=== PATIENT | male | born 1960 | race Caucasian/White ===

== ENCOUNTER 2023-07-31 16:50 | Observation (INO) | payer OTHER, SELFPAY ==
[2023-07-31] VITALS (20 sets, daily range): BP systolic 133–175; BP diastolic 74–94; PULSE 67–90; RESP 18–20; TEMP 36.3–36.4; O2SAT 91–96; BMI 39.3; BMI 39.8
--- NOTE | 2023-07-31 17:08 | CRLHL7_ITS ---
For Patients: As a result of the Century Cures Act, medical imaging exams and procedure reports are released immediately into your electronic medical record. You may view this report before your referring provider. If you have questions, please contact your health care provider. INDICATION: Left-sided numbness. TECHNIQUE: CT head without contrast. COMPARISON: None. FINDINGS: CSF spaces: Within normal limits for age. Brain parenchyma and extra-axial spaces: The treadwell-white differentiation is normal. No sign of mass, hemorrhage, or midline shift. No extra-axial fluid collection. Skull base and calvarium: Mild right maxillary sinus mucoperiosteal thickening. Otherwise, the visualized paranasal sinuses and mastoid air cells demonstrate no acute or significant findings. The visualized orbits are grossly unremarkable. No skull fractures. IMPRESSION: No acute intracranial abnormality on this noncontrast study. Please note that all CT scans at this facility use dose modulation, iterative reconstruction, and/or weight-based dosing when appropriate to reduce radiation dose to as low as reasonably achievable. Dictated by Suresh Lopez MD @ 07/31/2023 5:39:25 PM (Electronically Signed)
--- NOTE | 2023-07-31 17:47 | CRLHL7_ITS ---
For Patients: As a result of the Century Cures Act, medical imaging exams and procedure reports are released immediately into your electronic medical record. You may view this report before your referring provider. If you have questions, please contact your health care provider. INDICATION: Transient ischemic attack, left arm numbness, left facial numbness. TECHNIQUE: CTA neck with contrast bolus tracking, 3D angiographic rendering using maximum intensity projection (MIP) and images permanently archived. FINDINGS: There is minor carotid atherosclerosis. There is no significant carotid artery stenosis or dissection. There is no significant vertebral artery stenosis or dissection. The soft tissues of the neck are within normal limits. The cervical spine is in normal alignment. Degenerative changes are noted in the cervical spine. IMPRESSION: No significant carotid or vertebral artery stenosis or dissection. Please note that all CT scans at this facility use dose modulation, iterative reconstruction, and/or weight-based dosing when appropriate to reduce radiation dose to as low as reasonably achievable. Dictated by Gino Michaels MD @ 08/01/2023 9:57:02 AM (Electronically Signed)
--- NOTE | 2023-07-31 17:48 | CRLHL7_ITS ---
For Patients: As a result of the Century Cures Act, medical imaging exams and procedure reports are released immediately into your electronic medical record. You may view this report before your referring provider. If you have questions, please contact your health care provider. INDICATION: Transient ischemic attack, left arm numbness, left facial numbness. TECHNIQUE: CTA head with contrast bolus tracking, 3D angiographic rendering using maximum intensity projection (MIP) and images permanently archived. FINDINGS: The left GRADES 6 TH[address]OUGH 8 TEACHER has an early bifurcation with possibly some collateral formation. There is otherwise normal opacification of the intracranial vasculature. There is no large vessel occlusion. No aneurysm is identified. IMPRESSION: No large vessel occlusion. Please note that all CT scans at this facility use dose modulation, iterative reconstruction, and/or weight-based dosing when appropriate to reduce radiation dose to as low as reasonably achievable. Dictated by Gino Michaels MD @ 08/01/2023 9:55:39 AM (Electronically Signed)
--- NOTE | 2023-07-31 17:51 | ED_ITS ---
HPI - Neuro Symptoms/Deficit General Date Seen: 08/15/23 Chief Complaint: Neuro Symptoms/Altered Deficit Stated Complaint: stroke like symptoms Time Seen by Provider: 07/31/23 17:03 Source: patient Mode of arrival: ambulatory Limitations: no limitations History of Present Illness HPI Narrative: Patient is a 62-year-old male with no pertinent medical problems presenting to the emergency department for 4-5 episodes of left-sided facial numbness and left arm numbness. He states over the past 4 days this has happened about 4 or 5 times the latest being at about 14:30 today. States each episode lasts only about 5 minutes and then resolves. Denies ever having symptoms like this before. No history of strokes in the family. He has no history of diabetes, hypertension, smoking, high cholesterol. No heart disease. States when the symptoms occur he has no associated numbness. States he is asymptomatic at this time. Denies fevers, chills, confusion, chest pain, shortness of breath, abdominal pain, lightheadedness, dizziness. No other concerns noted at this time Related Data Home Medications Medication Instructions Recorded Confirmed No Known Home Medications 07/31/23 07/31/23 Allergies Allergy/AdvReac Type Severity Reaction Status Date / Time No Known Drug Allergies Allergy Verified 07/31/23 17:00 Review of Systems Status of ROS: Reports: 10 or more systems reviewed and unremarkable except as noted in History and below [facility] Social History Smoking Status: Never smoker How often do you have a drink containing alcohol: 2-3 times a week How many standard drinks containing alcohol do you have on a typical day: 1 or 2 How often do you have six or more drinks on one occasion: Never AUDIT-C Alcohol total score: 3 Non-prescribed substance use: denies use Exam Narrative: Exam Narrative: Const: Well-nourished, Well-developed, in mild distress Eyes: PERRL, no conjunctival injection, and symmetrical lids HENT: Atraumatic external nose and ears. Moist mucous membranes. Neck: Symmetric, trachea midline, No thyromegaly. CVS: RRR, No murmurs or gallops. Peripheral pulses 2+ and equal in all extremities RESP: Unlabored respiratory effort. Clear to auscultation bilaterally. GI: Nontender/Nondistended, No rebound or guarding. MSK:Extremities w/o deformity, Normal Active ROM Skin: Warm, Dry. No rashes or lesions. Neuro: Normal Muscle tone, Cranial nerves 2-12 grossly intact, normal [id number], normal [id number], normal gait, normal strength 5/5 upper lower extremities bilaterally, normal sensation upper and lower extremities bilaterally, normal rapid alternating movements. Psych: Awake, Alert, & Oriented x3. Appropriate mood and affect. Const: Vital Signs, click to edit/add: Vital Signs - 24 hr 07/31/23 16:56 07/31/23 18:03 07/31/23 18:04 Temperature 97.3 F L Pulse Rate 78 83 Pulse Rate [Right Pulse Oximeter] 85 Respiratory Rate 18 Blood Pressure 134/86 Blood Pressure [Ri ght Upper Arm] 175/74 H Pulse Oximetry 96 93 92 Oxygen Delivery Me thod Room Air 07/31/23 18:15 07/31/23 18:30 07/31/23 18:45 Temperature Pulse Rate 90 79 87 Pulse Rate [Right Pulse Oximeter] Respiratory Rate Blood Pressure Blood Pressure [Ri ght Upper Arm] Pulse Oximetry 93 94 96 Oxygen Delivery Me thod 07/31/23 19:00 07/31/23 19:15 07/31/23 19:17 Temperature Pulse Rate 80 73 74 Pulse Rate [Right Pulse Oximeter] Respiratory Rate Blood Pressure 146/86 H Blood Pressure [Ri ght Upper Arm] Pulse Oximetry 94 91 93 Oxygen Delivery Me thod 07/31/23 19:30 07/31/23 19:45 07/31/23 19:53 Temperature Pulse Rate 80 85 78 Pulse Rate [Right Pulse Oximeter] Respiratory Rate Blood Pressure 138/88 Blood Pressure [Ri ght Upper Arm] Pulse Oximetry 93 92 93 Oxygen Delivery Me thod 07/31/23 20:00 07/31/23 20:01 07/31/23 20:15 Temperature Pulse Rate 78 78 81 Pulse Rate [Right Pulse Oximeter] Respiratory Rate Blood Pressure 138/90 H Blood Pressure [Ri ght Upper Arm] Pulse Oximetry 93 93 94 Oxygen Delivery Me thod 07/31/23 20:30 07/31/23 20:45 Temperature Pulse Rate 82 82 Pulse Rate [Right Pulse Oximeter] Respiratory Rate Blood Pressure Blood Pressure [Ri ght Upper Arm] Pulse Oximetry 93 94 Oxygen Delivery Me thod Course Vital Signs Vital signs: Initial Vital Signs Temperature 97.3 F L 07/31/23 16:56 Temperature Source Temporal Artery Scan 07/31/23 16:56 Pulse Rate 85 07/31/23 16:56 Respiratory Rate 18 07/31/23 16:56 Blood Pressure 175/74 H 07/31/23 16:56 Blood Pressure Mean 107 H 07/31/23 16:56 Blood Pressure Position Sitting 07/31/23 16:56 Pulse Oximetry 96 07/31/23 16:56 Oxygen Delivery Method Room Air 07/31/23 16:56 Vital Signs Temperature 97.3 F L 07/31/23 16:56 Pulse Rate 85 07/31/23 16:56 Respiratory Rate 18 07/31/23 16:56 Blood Pressure 175/74 H 07/31/23 16:56 Pulse Oximetry 96 07/31/23 16:56 Oxygen Delivery Method Room Air 07/31/23 16:56 Temperature 97.3 F L 07/31/23 16:56 Pulse Rate 82 07/31/23 20:45 Respiratory Rate 18 07/31/23 16:56 Blood Pressure 138/90 H 07/31/23 20:01 Pulse Oximetry 94 07/31/23 20:45 Oxygen Delivery Method Room Air 07/31/23 16:56 Medications Administered Medications: Discontinued Medications Generic Name Dose Route Start Last Admin Trade Name Jaredq PRN Reason Stop Dose Admin Aspirin 324 mg 07/31/23 19:51 07/31/23 20:01 Aspirin 81 Mg Tab.Chew PO 07/31/23 19:52 324 mg ONCE ONE Administration MDM - Neuro Symptoms/Deficit MDM Narrative Medical decision making narrative: Patient is a 62-year-old male presenting to emergency department for left face and arm numbness. This has happened multiple times in the past few days and only last for about 5 minutes at this time my concern is TIAs versus other neurological issues. Does not seem like a seizure. No signs of meningitis. Seems odd to be a radiculopathy considering it happened in his face and his arm at the same time. Will treated as a TIA at this time. COVID/flu/RSV, EKG, troponin, CBC, CMP all ordered. Aspirin given. Imaging and lab work all returned showing no acute abnormalities. CTA was then ordered which also showed no acute abnormalities. EKG is normal. Will Dr. Coles of spoke to who recommends admission for MRI in the morning and neurology consult. After this he had another episode with the same symptoms and numbness was just on the inside of the arm. It resolved again after a few minutes. Dr. Parada accepted for admission. Lab Data Labs: Lab Results 07/31/23 Range/Units 17:34 WBC 7.71 (4.50-11.00) K/uL RBC 5.08 (4.30-5.90) m/uL Hgb 15.7 (13.5-17.5) gm/dL Hct 46.3 (37.0-53.0) % MCV 91 (80-100) fL MCH 31 (26-34) pg MCHC 34 (32-36) gm/dL RDW Coeff of Lashon 12.9 (11.5-15.5) % Plt Count 211 (140-440) K/uL Neut % (Auto) 46.3 (42.0-72.0) % Lymph % (Auto) 33.5 (20-44) % [place] % (Auto) 15.7 H (0.0-11.0) % Eos % (Auto) 3.6 (0.0-7.0) % Baso % (Auto) 0.8 (0.0-3.0) % Neut # (Auto) 3.57 (1.7-7.0) K/uL Lymph # (Auto) 2.58 (0.90-2.90) K/uL [place] # (Auto) 1.20 H (0.00-0.90) K/UL Eos # (Auto) 0.28 (0.00-0.50) K/uL Baso # (Auto) 0.06 (0.00-0.30) K/uL Abs Immat Gran (auto) 0.01 (0.00-0.30) K/uL Imm/Tot Granulo (auto) 0.1 % Sodium 138 (135-149) mmol/L Potassium 4.2 (3.6-5.1) mmol/L Chloride 104 (96-114) mmol/L Carbon Dioxide 23 (20-32) mmol/L Anion Gap 11 (7-15) mEq/L BUN 18 (7-30) mg/dL Creatinine 0.9 (0.5-1.5) mg/dL Estimated Creat Clear 84.07 Estimated GFR 97 ml/min Glucose 146 H (60-115) mg/dL Calcium 9.2 (8.4-10.6) mg/dL Total Bilirubin 0.4 (0.1-1.5) mg/dL AST 34 (12-35) U/L ALT 48 (4-50) U/L Alkaline Phosphatase 38 L (40-150) U/L Troponin I < 0.01 L (0.01-0.04) ng/mL Total Protein 8.0 (6.0-8.3) g/dL Albumin 4.5 (3.3-5.0) g/dL SARS-CoV-2 (PCR) Negative SARS-CoV-2 (Negative) Influenza Type A (PCR) Negative PCR FLU A (Negative) Influenza Type B (PCR) Negative PCR FLU B (Negative) RSV (PCR) Negative PCR RSV (Negative) Imaging Data CTA head and neck: Radiologist's impression: Preliminary Report: CTA Head/neck: 1. No evidence of intracranial proximal arterial occlusion or critical stenosis. 2. No evidence of hemodynamically significant stenosis or acute dissection in the neck. Dictated by Ana Grijalva MD @ 07/31/2023 7:01:[address] scan head: Radiologist's impression: No acute intracranial abnormality on this noncontrast study. Please note that all CT scans at this facility use dose modulation, iterative reconstruction, and/or weight-based dosing when appropriate to reduce radiation dose to as low as reasonably achievable. Dictated by Suresh Lopez MD @ 07/31/2023 5:39:25 PM ECG Data Attestation: I personally reviewed and interpreted this ECG as follows: Prior ECG tracings: not available for review Interpretation: Normal sinus rhythm with a rate of 79 beats per minute, normal intervals, normal axis, no ST or T-wave abnormalities Discharge Plan Discharge Clinical Impression: Arm numbness Patient Disposition: Admitted As Observation Discharge Location: [facility] Condition: Stable
[2023-07-31 17:54] LABS: Basophils Absolute Auto 0.06 K/uL (0.00-0.30); Basophils Percent Auto 0.8 % (0.0-3.0); Eosinophils Absolute Auto 0.28 K/uL (0.00-0.50); Eosinophils Percent Auto 3.6 % (0.0-7.0); Hematocrit 46.3 % (37.0-53.0); Hemoglobin* 15.7 gm/dL (13.5-17.5); Immature Granulocytes Abs Auto 0.01 K/uL (0.00-0.30); Immature Granulocytes Pct Auto 0.1 %; Lymphocytes Absolute Auto 2.58 K/uL (0.90-2.90); Lymphocytes Percent Auto 33.5 % (20-44); Mean Corpuscular HGB Conc 34 gm/dL (32-36); Mean Corpuscular Hemoglobin 31 pg (26-34); Mean Corpuscular Volume 91 fL (80-100); Monocytes Percent Auto 15.7 % (0.0-11.0); Neutrophils Absolute Auto 3.57 K/uL (1.7-7.0); Neutrophils Percent Auto 46.3 % (42.0-72.0); Platelet Count* 211 K/uL (140-440); RDW Coefficient of Variation % 12.9 % (11.5-15.5); Red Blood Count 5.08 m/uL (4.30-5.90); White Blood Count* 7.71 K/uL (4.50-11.00)
[2023-07-31 17:58] LABS: Slide Review Reflex No
[2023-07-31 18:09] LABS: Albumin* 4.5 g/dL (3.3-5.0); Chloride* 104 mmol/L (96-114); Potassium* 4.2 mmol/L (3.6-5.1); Sodium* 138 mmol/L (135-149)
[2023-07-31 18:11] LABS: Anion Gap 11 mEq/L (7-15); Bilirubin Total* 0.4 mg/dL (0.1-1.5); Carbon Dioxide* 23 mmol/L (20-32); Creatinine* 0.9 mg/dL (0.5-1.5); Est. Creatinine Clearance* 84.07; Estimated Glomerular Filt Rate 97 ml/min
[2023-07-31 18:12] LABS: Alanine Aminotransferase* 48 U/L (4-50); Alkaline Phosphatase* 38 U/L (40-150); Aspartate Amino Transferase* 34 U/L (12-35); Blood Urea Nitrogen* 18 mg/dL (7-30); Glucose* 146 mg/dL (60-115)
[2023-07-31 18:13] LABS: Calcium* 9.2 mg/dL (8.4-10.6)
[2023-07-31 18:27] LABS: Troponin I* < 0.01 ng/mL (0.01-0.04)
[2023-07-31 19:41] LABS: PCR FLU A Negative PCR FLU A (Negative); SARS PCR* Negative SARS-CoV-2 (Negative)
[2023-07-31 19:42] LABS: PCR FLU B Negative PCR FLU B (Negative); PCR RSV Negative PCR RSV (Negative)
--- NOTE | 2023-07-31 19:50 | ED.NURSE ---
Pt reports experiencing episode of L-sided facial numbness and some localized Left forearm heaviness. MD Cerna notified. Neuros assessed and appear to be intact otherwise. Vitals checked, VSS.
--- NOTE | 2023-07-31 20:00 | ED.NURSE ---
Pt reassessed, states symptoms resolved after several minutes. Asymptomatic at this time. MD updated.
[2023-07-31] MEDS: ASPIRIN 81 MG TAB.CHEW 324 MG PO (20:01)
--- NOTE | 2023-07-31 20:49 | ED.NURSE ---
Report called to M/S RN.
--- NOTE | 2023-07-31 22:38 | P.IMHP_ITS ---
Hospitalist- H&P: HPI History of Present Illness Time Seen by Provider: 22:38 Date Seen: 07/31/23 Chief complaint: stroke like symptoms Narrative: Arslan Tesfaye is a 62 year old male with obesity and h/o hyperlipidemia for which he is not taking any medication who presented through the ER for left lower face and arm numbness. He has been working on a puzzle lately and thought at first this was just from leaning on his arm. It has been happening intermittently since Sunday. It lasts about 5 minutes and then resolves. He had an episode while driving yesterday. He had an episode in the ER today, but is not having symptoms at this time. Never had anything like this before. Denies pain, CP or SOB. 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 ?S74.21XA - Injury of cutaneous sensory nerve at hip and high level, right leg, initial encounter (ICD-10) Cervical stenosis of spinal canal ?M48.02 - Spinal stenosis, cervical region (ICD-10) DAISY on CPAP ?G47.33 - Obstructive sleep apnea (adult) (pediatric) (ICD-10) Alcohol abuse, episodic ?F10.10 - Alcohol abuse, uncomplicated (ICD-10) Obesity (BMI 30.0-34.9) ?E66.9 - Obesity, unspecified (ICD-10) Hyperlipidemia ?E78.5 - Hyperlipidemia, unspecified (ICD-10) Surgical History (Updated 07/31/23 @ 23:21 by Elaine Parada MD) H/O sinus surgery ?Z98.890 - Other specified postprocedural states (ICD-10) H/O hernia repair ?Z98.890 - Other specified postprocedural states (ICD-10) ?Z87.19 - Personal history of other diseases of the digestive system (ICD-10) Hx of colonoscopy ?Z98.890 - Other specified postprocedural states (ICD-10) H/O basal cell carcinoma excision ?Z98.890 - Other specified postprocedural states (ICD-10) ?Z85.828 - Personal history of other malignant neoplasm of skin (ICD-10) Family History (Updated 07/31/23 @ 21:59 by Elaine Parada MD) Maternal Grandfather Diabetes Maternal Grandmother Diabetes Mother Diabetes Father COPD (chronic obstructive pulmonary disease) Social History (Updated 07/31/23 @ 23:23 by Elaine Parada MD) Narrative: 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 Drinks ~10 drinks in a day on two days of the week. Denies any problems with alcohol. Denies recreational drug use. What is your current living situation?: I presently have a place to live Problems where you live: no known problems Problems where you live details: n/a In the past 12 months, utilities in danger of being shut off: no In past 12 months, lack of transportation kept you from medical appts, meetings, work, or getting things needed for daily living: no In the past 12 mos, have been you worried that your food would run out before you had money to buy more?: never true In the past 12 mos, the food you bought just didn't last and you didn't have money to buy more?: never true Smoking Status: Never smoker How often do you have a drink containing alcohol: 2-3 times a week How many standard drinks containing alcohol do you have on a typical day: 1 or 2 How often do you have six or more drinks on one occasion: Never AUDIT-C Alcohol total score: 3 Non-prescribed substance use: denies use Caffeine: Yes (soda) How often does anyone, including family, friends and others, physically hurt you : never How often does anyone, including family, friends and others, insult or talk down to you: never How often does anyone, including family, friends and others, threaten you with harm: never How often does anyone, including family, friends and others, scream or curse at you: never service: No Meds Home Medications and Allergies Home Medications Medication Instructions Recorded Confirmed Type No Known Home Medications 07/31/23 07/31/23 History Allergies Allergy/AdvReac Type Severity Reaction Status Date / Time No Known Drug Allergies Allergy Verified 07/31/23 17:00 Exam Narrative: Exam Narrative: General: No acute distress. Awake alert oriented x3. Obese. HEENT: Normocephalic atraumatic, pupils equally round and reactive to light and accommodation. Oropharynx clear. Mucous membranes are moist. No cervical lymphadenopathy, thyromegaly or carotid bruits. No JVD. Cardiovascular: Regular rate and rhythm. No murmurs, gallops, or rubs. Chest: No increased work of breathing. Clear to auscultation bilaterally. No crackles or wheezes. Abdomen: Bowel sounds present. Soft, protuberant, nondistended, nontender. Small umbilical hernia, reproducible and nontender. No hepatosplenomegaly or masses. Genitourinary: Patient asked me about bulging on upper thighs bilaterally that has been there for years. These appear to be fat pads/pannus. No inguinal hernias palpated bilaterally. Extremities: No edema, no cyanosis or clubbing. Skin: No jaundice, no pallor, no rashes. Neuro: There are no focal deficits. Romberg is negative. Cranial nerves 2-12 are intact. Extraocular movements are full. No nystagmus. No facial asymmetry. Tongue is midline. Peripheral vision and vision are grossly intact. Strength is 5/5 in all 4 extremities. DTRs intact and symmetric. Light touch sensation is intact in face body and extremities. Coordination is intact in upper and lower extremities. Const: Vital Signs, click to edit/add: Vital Signs - 24 hr 07/31/23 16:56 07/31/23 18:03 07/31/23 18:04 Temperature 97.3 F L Pulse Rate 78 83 Pulse Rate [Pulse Oximeter] Pulse Rate [Right Pulse Oximeter] 85 Respiratory Rate 18 Blood Pressure 134/86 Blood Pressure [Ri ght Arm] Blood Pressure [Ri ght Upper Arm] 175/74 H Pulse Oximetry 96 93 92 Oxygen Delivery Me thod Room Air 07/31/23 18:15 07/31/23 18:30 07/31/23 18:45 Temperature Pulse Rate 90 79 87 Pulse Rate [Pulse Oximeter] Pulse Rate [Right Pulse Oximeter] Respiratory Rate Blood Pressure Blood Pressure [Ri ght Arm] Blood Pressure [Ri ght Upper Arm] Pulse Oximetry 93 94 96 Oxygen Delivery Me thod 07/31/23 19:00 07/31/23 19:15 07/31/23 19:17 Temperature Pulse Rate 80 73 74 Pulse Rate [Pulse Oximeter] Pulse Rate [Right Pulse Oximeter] Respiratory Rate Blood Pressure 146/86 H Blood Pressure [Ri ght Arm] Blood Pressure [Ri ght Upper Arm] Pulse Oximetry 94 91 93 Oxygen Delivery Me od 07/31/23 19:30 07/31/23 19:45 07/31/23 19:53 Temperature Pulse Rate 80 85 78 Pulse Rate [Pulse Oximeter] Pulse Rate [Right Pulse Oximeter] Respiratory Rate Blood Pressure 138/88 Blood Pressure [Ri ght Arm] Blood Pressure [Ri ght Upper Arm] Pulse Oximetry 93 92 [facility]00 07/31/23 20:01 07/31/23 20:15 Temperature Pulse Rate 78 78 81 Pulse Rate [Pulse Oximeter] Pulse Rate [Right Pulse Oximeter] Respiratory Rate Blood Pressure 138/90 H Blood Pressure [Ri ght Arm] Blood Pressure [Ri ght Upper Arm] Pulse Oximetry 93 93 94 [facility] 07/[facility]/23 20:30 07/31/23 20:45 07/31/23 21:10 Temperature 97.6 F Pulse Rate 82 82 Pulse Rate [Pulse Oximeter] 67 Pulse Rate [Right Pulse Oximeter] Respiratory Rate 20 Blood Pressure Blood Pressure [Ri ght Arm] 142/94 H Blood Pressure [Ri ght Upper Arm] Pulse Oximetry 93 94 95 [facility] Hospitalist - H&P: Result Labs Labs: Short CBC 07/31/23 Range/Units 17:34 WBC 7.71 (4.50-11.00) K/uL Hgb 15.7 (13.5-17.5) gm/dL Hct 46.3 (37.0-53.0) % Plt Count 211 (140-440) K/uL BMP 07/31/23 17:34 Sodium 138 Potassium 4.2 Chloride 104 Carbon Dioxide 23 BUN 18 Creatinine 0.9 Glucose 146 H Calcium 9.2 Cardiac Enzymes 07/31/23 Range/Units 17:34 Troponin I < 0.01 L (0.01-0.04) ng/mL Liver Function 07/31/23 Range/Units 17:34 Total Bilirubin 0.4 (0.1-1.5) mg/dL AST 34 (12-35) U/L ALT 48 (4-50) U/L Alkaline Phosphatase 38 L (40-150) U/L Albumin 4.5 (3.3-5.0) g/dL EKG normal sinus rhythm, 73 beats per minute, nonspecific T-wave abnormality. Ordering Physician: Rahat Cerna D.O. Date of Service: 07/31/23 Procedure(s): CT head/brain wo con Accession Number(s): [id number] cc: Rahat Cerna D.O.; Provider,Not a Local~ For Patients: As a result of the Cures Act, medical imaging exams and procedure reports are released immediately into your electronic medical record. You may view this report before your referring provider. If you have questions, please contact your health care provider. INDICATION: Left-sided numbness. TECHNIQUE: CT head without contrast. COMPARISON: None. FINDINGS: CSF spaces: Within normal limits for age. Brain parenchyma and extra-axial spaces: The treadwell-white differentiation is normal. No sign of mass, hemorrhage, or midline shift. No extra-axial fluid collection. Skull base and calvarium: Mild right maxillary sinus mucoperiosteal thickening. Otherwise, the visualized paranasal sinuses and mastoid air cells demonstrate no acute or significant findings. The visualized orbits are grossly unremarkable. No skull fractures. IMPRESSION: No acute intracranial abnormality on this noncontrast study. Please note that all CT scans at this facility use dose modulation, iterative reconstruction, and/or weight-based dosing when appropriate to reduce radiation dose to as low as reasonably achievable. Dictated by Suresh Lopez MD @ 07/31/2023 5:39:25 PM (Electronically Signed) Assessment and Plan Assessment and plan (1) Arm numbness: Problem comment: - DDx includes TIA, impingement, angina (left arm and jaw symptoms). - CT and CTA head no acute abnormalities. - Admit for observation on telemetry. MRI and ECHO in the morning. Consider cardiac stress testing as an outpatient since this may be anginal equivalent. Status: Acute (2) Hyperlipidemia: Problem comment: He is not taking medication for this, but it is not clear that it is diet controlled because he has not seen a physician for an annual physical in over 2 years. Status: Chronic
[2023-08-01] VITALS (7 sets, daily range): BP systolic 121–137; BP diastolic 83–95; PULSE 60–90; RESP 14–20; TEMP 36.2–37.2; O2SAT 93–96
--- NOTE | 2023-08-01 06:22 | PC.NURSE ---
Patient arrived from ED at 2100. Patient pleasant, alert and oriented. Independent in room for ambulation.?Denies pain, weakness, dizziness or lightheadedness. Patient called television writer into room at 0558 and reported he was having an episode of numbness/tingling on the left side of face and left arm. Episode lasted approximately 5 min. He denied any other symptoms. Speech was normal. Hand grasps strong and equal; leg strength strong and equal. He reports symptoms were the same as previous episodes. ?
[2023-08-01 06:43] LABS: Chloride* 101 mmol/L (96-114); Sodium* 140 mmol/L (135-149)
[2023-08-01 06:44] LABS: Potassium* 4.6 mmol/L (3.6-5.1)
[2023-08-01 06:46] LABS: Est. Creatinine Clearance* 84.07; Estimated Glomerular Filt Rate 85 ml/min
[2023-08-01 06:47] LABS: Anion Gap 8 mEq/L (7-15); Blood Urea Nitrogen* 18 mg/dL (7-30); Calcium* 9.5 mg/dL (8.4-10.6); Carbon Dioxide* 31 mmol/L (20-32); Glucose* 149 mg/dL (60-115)
[2023-08-01 07:03] LABS: Troponin I* < 0.01 ng/mL (0.01-0.04)
[2023-08-01] MEDS: SODIUM CHLORIDE 0.9 % (FLUSH) 10 ML SYRINGE 5 ML IVF ×2 (09:11→21:15)
[2023-08-01] MEDS: CLOPIDOGREL 75 MG TABLET PO (10:03)
--- NOTE | 2023-08-01 15:27 | PM.IMPN1 ---
Progress Note: A&P Assessment and plan (1) TIA (transient ischemic attack): Problem details: Left face and arm numbness likely due to TIA. Treat with aspirin, Plavix, statin. Await MRI and echo results. Status: Acute (2) DAISY on CPAP: Problem details: Continue home use Status: Chronic (3) Obesity: Problem details: BMI of 39 Status: Acute (4) Elevated blood sugar: Problem details: Check hemoglobin A1c Status: Acute (5) Hyperlipidemia: Problem details: With TIA will start a statin Status: Chronic Plan Continue in hospital for evaluation of fluctuant neurologic symptoms pending test results and clinical course possible discharge to home tomorrow Time Spent With Patient Total time spent: Total time spent today is 55 minutes, 40 minutes in coordination of care discussing with patient other providers ongoing management of TIA and chronic cardiovascular risk factors Subjective Date Seen: 08/01/23 Interval history: 62-year-old male admitted through the emergency department reporting about 5 days of intermittent left cheek and left arm numbness and tingling. This has been occurring intermittently over the past 5 days. There is no obvious trigger for this. Typically occurs when he is at rest. Does not appear to be caused by holding his neck or arm in particular position. He does not have any weakness associated with it there is no visual disturbance. He is not having any pain in his face or arm. He does not have any neck pain or change in symptoms associated with neck movement. He is not having any shortness of breath or chest pain. Symptoms are not exertional. It seems to last a couple minutes and then goes away without any intervention. He reports otherwise feeling well. Exam Const: Vital Signs, click to edit/add: Vital Signs - 24 hr 07/31/23 16:56 07/31/23 18:03 07/31/23 18:04 Temperature 97.3 F L Pulse Rate 78 83 Pulse Rate [Pulse Oximeter] Pulse Rate [Right Pulse Oximeter] 85 Respiratory Rate 18 Blood Pressure 134/86 Blood Pressure [Ri ght Arm] Blood Pressure [Ri ght Upper Arm] 175/74 H Pulse Oximetry 96 93 92 Oxygen Delivery Me thod Room Air 07/31/23 18:15 07/31/23 18:30 07/31/23 18:45 Temperature Pulse Rate 90 79 87 Pulse Rate [Pulse Oximeter] Pulse Rate [Right Pulse Oximeter] Respiratory Rate Blood Pressure Blood Pressure [Ri ght Arm] Blood Pressure [Ri ght Upper Arm] Pulse Oximetry 93 94 [facility] 07[facility] 19:00 07/31/23 19:15 07/31/23 19:17 Temperature Pulse Rate 80 73 74 Pulse Rate [Pulse Oximeter] Pulse Rate [Right Pulse Oximeter] Respiratory Rate Blood Pressure 146/86 H Blood Pressure [Ri ght Arm] Blood Pressure [Ri ght Upper Arm] Pulse Oximetry 94 91 93 [facility] 07/31/23 19:30 07/31/23 19:45 07/31/23 19:53 Temperature Pulse Rate 80 85 78 Pulse Rate [Pulse Oximeter] Pulse Rate [Right Pulse Oximeter] Respiratory Rate Blood Pressure 138/88 Blood Pressure [Ri ght Arm] Blood Pressure [Ri ght Upper Arm] Pulse Oximetry 93 92 93 [facility] 07/31/23 20:00 07/31/23 20:01 07/31/23 20:15 Temperature Pulse Rate 78 78 81 Pulse Rate [Pulse Oximeter] Pulse Rate [Right Pulse Oximeter] Respiratory Rate Blood Pressure 138/90 H Blood Pressure [Ri ght Arm] Blood Pressure [Ri ght Upper Arm] Pulse Oximetry 93 93 94 [facility] 07/31/23 20:30 07/31/23 20:45 07/31/23 21:10 Temperature 97.6 F Pulse Rate 82 82 Pulse Rate [Pulse Oximeter] 67 Pulse Rate [Right Pulse Oximeter] Respiratory Rate 20 Blood Pressure Blood Pressure [Ri ght Arm] 142/94 H Blood Pressure [Ri ght Upper Arm] Pulse Oximetry 93 94 95 [facility] 07/31/23 21:10 07/31/23 22:32 07/31/23 23:00 Temperature 97.6 F Pulse Rate 67 Pulse Rate [Pulse Oximeter] 71 Pulse Rate [Right Pulse Oximeter] Respiratory Rate 20 18 Blood Pressure Blood Pressure [Ri ght Arm] 133/90 H Blood Pressure [Ri ght Upper Arm] Pulse Oximetry 95 93 Oxygen Delivery [facility] Room Air Room Air 07/31/23 23:00 08/01/23 03:00 08/01/23 08:09 Temperature 97.1 F L 98.9 F Pulse Rate Pulse Rate [Pulse Oximeter] 70 72 Pulse Rate [Right Pulse Oximeter] Respiratory Rate 16 20 Blood Pressure Blood Pressure [Ri ght Arm] 134/88 133/91 H Blood Pressure [Ri ght Upper Arm] Pulse Oximetry 93 94 95 Oxygen Delivery Sc thod Room Air Room Air Room Air 08/01/23 08:09 08/01/23 08:09 08/01/23 08:35 Temperature Pulse Rate 69 Pulse Rate [Pulse Oximeter] 72 Pulse Rate [Right Pulse Oximeter] Respiratory Rate 20 20 Blood Pressure Blood Pressure [Ri ght Arm] Blood Pressure [Ri ght Upper Arm] Pulse Oximetry 95 Oxygen Delivery Sc thod Room Air 08/01/23 11:09 08/01/23 15:03 08/01/23 15:03 Temperature 98.1 F 97.3 F L Pulse Rate Pulse Rate [Pulse Oximeter] 66 90 90 Pulse Rate [Right Pulse Oximeter] Respiratory Rate 20 20 20 Blood Pressure Blood Pressure [Ri ght Arm] 137/89 134/83 Blood Pressure [Ri ght Upper Arm] Pulse Oximetry 93 93 [facility] Room Air 08/01/23 15:03 Temperature Pulse Rate Pulse Rate [Pulse Oximeter] Pulse Rate [Right Pulse Oximeter] Respiratory Rate 20 Blood Pressure Blood Pressure [Ri ght Arm] Blood Pressure [Ri ght Upper Arm] Pulse Oximetry 93 Oxygen Delivery Sc [facility]od Room Air Labs Labs: Laboratory Results - last 24 hr 07/31/23 08/01/23 17:34 06:07 WBC 7.71 RBC 5.08 Hgb 15.7 Hct 46.3 MCV 91 MCH 31 MCHC 34 RDW Coeff of Lash[place] 12.9 Plt Count 211 Neut % (Auto) 46.3 Lymph % (Auto) 33.5 Price % (Auto) 15.7 H Eos % (Auto) 3.6 Baso % (Auto) 0.8 Neut # (Auto) 3.57 Lymph # (Auto) 2.58 Price # (Auto) 1.20 H Eos # (Auto) 0.28 Baso # (Auto) 0.06 Abs Immat Gran (auto) 0.01 Imm/Tot Granulo (auto) 0.1 Sodium 138 140 Potassium 4.2 4.6 Chloride 104 101 Carbon Dioxide 23 31 Anion Gap 11 8 BUN 18 18 Creatinine 0.9 1.0 Estimated Creat Clear 84.07 84.07 Estimated GFR 97 85 Glucose 146 H 149 H Calcium 9.2 9.5 Total Bilirubin 0.4 AST 34 ALT 48 Alkaline Phosphatase 38 L Troponin I < 0.01 L < 0.01 L Total Protein 8.0 Albumin 4.5 SARS-CoV-2 (PCR) Negative SARS-CoV-2 Influenza Type A (PCR) Negative PCR FLU A Influenza Type B (PCR) Negative PCR FLU B RSV (PCR) Negative PCR RSV
[2023-08-01] MEDS: ASPIRIN 81 MG TAB.CHEW PO (16:47)
[2023-08-01] MEDS: CLOPIDOGREL 75 MG TABLET 225 MG PO (16:47)
[2023-08-01] MEDS: PERFLUTREN LIPID MICROSPHERES 2 ML VIAL IV (17:07)
--- NOTE | 2023-08-01 19:07 | PC.NURSE ---
End of Shift: Patient pleasant and cooperative. Patient vitally stable, lungs clear, BS WNL, IV SL and intact. Patient had 3 episodes of left facial and arm numbness that resolved. EKG performed once and neuros all intact. Patient denies pain. Patient independent in room and tolerating regular diet. Patient urinating and had 1 BM. Patient tele=NSR.
--- NOTE | 2023-08-01 22:32 | CRLHL7_ITS ---
For Patients: As a result of the Century Cures Act, medical imaging exams and procedure reports are released immediately into your electronic medical record. You may view this report before your referring provider. If you have questions, please contact your health care provider. INDICATION: Left facial numbness. TECHNIQUE: Multiplanar multisequence noncontrast MR images of the brain. COMPARISON: CT brain 07/31/2023. FINDINGS: The ventricles and sulci are within normal limits for patient age. No mass effect or midline shift. Minimal FLAIR hyperintensities in the supratentorial white matter, nonspecific. No diffusion restriction to suggest acute infarction. No intracranial hemorrhage or pathologic extra-axial fluid collection. The major arterial flow voids of the skullbase are preserved. The globes are symmetric. Small retention cysts or polyps and moderate mucosal thickening in the right maxillary sinus. Severe opacification of the ethmoid air cells. Elongated lesions within the posterior nasal cavity with extension into the nasopharynx, concerning for polyps. Trace bilateral mastoid fluid. IMPRESSION: 1. No acute infarction, mass effect, or intracranial hemorrhage. 2. Minimal FLAIR hyperintensities in the supratentorial white matter are nonspecific, though most typical for chronic microvascular ischemic changes or sequelae of migraine headaches. 3. Elongated lesions within the posterior nasal cavity extending of the nasopharynx, concerning for polyps. Severe opacification of the ethmoid air cells. Dictated by Deshaun Burr MD @ 08/01/2023 5:39:00 PM (Electronically Signed)
[2023-08-02 03:00] VITALS: BP 136/96; PULSE 75; RESP 20; TEMP 36.3; O2SAT 96
--- NOTE | 2023-08-02 06:23 | PC.NURSE ---
End of shift report: Alert and oriented x 4, denies any pain or shortness of breath. Patient had 2 episodes of left mouth and cheek numbness as well as left arm numbness from elbow down into forearm. Per report, both episodes started at his mouth and then within 60 seconds he felt the numbness in his arm. They did resolve within 5 minutes. Denied any numbness or weakness with each episode. Patient was able to smile evenly during episode, no facial drooping visualized. Neuros intact.
[2023-08-02 06:53] LABS: Cholesterol* 191 mg/dL (90-199); HDL Cholesterol* 26 mg/dL (>=40); LDL Cholesterol Calculated 119 mg/dL (<100); Triglycerides* 231 mg/dL (40-149)
--- NOTE | 2023-08-02 07:29 | PM.DS1 ---
DS: Providers Provider Date Seen: 08/02/23 Date of admission: 07/31/23 20:49 Primary care physician: Not a Local Provider Admitting Clinician: Elaine Parada MD Attending Physician on discharge: Ward Miller MD Date of Discharge: 08/02/23 DS: Diagnosis Discharge Diagnosis (1) TIA (transient ischemic attack): Status: Acute Problem details: Left face and arm numbness likely due to TIA. Treat with aspirin, Plavix, statin. MRI shows chronic changes without ischemic stroke. No large vessel occlusion on CTA. (2) Sinusitis chronic, ethmoidal: Status: Acute Problem details: MRI brain showed probable polyps and ethmoid sinusitis. Previous history of sinus surgery. recommend follow-up with ENT (3) Hyperlipidemia: Status: Chronic Problem details: With TIA will start a statin (4) Elevated blood sugar: Status: Acute Problem details: Hemoglobin A1c is 6.5. (5) Obesity: Status: Acute Problem details: BMI of 39 (6) DAISY on CPAP: Status: Chronic Problem details: Continue home use (7) Ascending aorta dilation: Status: Acute Problem details: On echocardiogram ascending aorta is 4.3 cm. Aortic sinus is 4.0 cm. Outpatient follow-up DS: Summary Hospital Course Hospital Course: 62-year-old male admitted to the hospital with recurrent episodes of left cheek and left arm numbness and tingling. Episodes are relatively brief and self-limited without an obvious trigger. They seem to come and go randomly. Episodes last a few minutes. No other associated symptoms. Specifically denies other neurologic symptoms or cardiac symptoms or musculoskeletal symptoms. Consultation with tele Neurology at [facility] was done. This is thought to be a TIA. Workup was unremarkable including no bleed on head CT, no stroke on MRI and no large vessel occlusion on CTA. Echocardiogram was unremarkable as well. Cardiac monitoring showed no atrial fibrillation. Patient continued to have intermittent episodes of left facial numbness and left arm numbness there were brief, lasting a few minutes, and spontaneously resolving during his hospital stay. He was treated with aspirin, clopidogrel, statin. Incidentally noted findings during this hospital stay include the following: Elevated blood sugar with fasting morning sugars in the 140s and hemoglobin A1c of 6.5. No further treatment was started at this time. Abnormal lipid profile. Started on rosuvastatin in the context of TIA. Ethmoid sinusitis and sinus polyps seen on MRI brain. Referred to outpatient evaluation with ENT. Status at Discharge Functional status at discharge: independent ambulation Overall status at discharge: patient is not back to baseline Time Spent with Patient Time attestation: Total time spent providing and/or coordinating discharge services:40 minutes Time spent: Greater than 30 minutes Exam Narrative: Exam Narrative: He is alert and appears in no distress. Eyes normal. No facial asymmetry. He moves all 4 extremities well. Const: Vital Signs, click to edit/add: Vital Signs - 24 hr 08/01/23 08:09 08/01/23 08:09 08/01/23 08:09 Temperature 98.9 F Pulse Rate Pulse Rate [Pulse Oximeter] 72 72 Respiratory Rate 20 20 20 Blood Pressure [Ri ght Arm] 133/91 H Pulse Oximetry 95 95 Oxygen Delivery Me thod Room Air Room Air 08/01/23 08:35 08/01/23 11:09 08/01/23 15:03 Temperature 98.1 F 97.3 F L Pulse Rate 69 Pulse Rate [Pulse Oximeter] 66 90 Respiratory Rate 20 20 Blood Pressure [Ri ght Arm] 137/89 134/83 Pulse Oximetry 93 93 Oxygen Delivery Me thod Room Air Room Air 08/01/23 15:03 08/01/23 15:03 08/01/23 19:00 Temperature 97.6 F Pulse Rate Pulse Rate [Pulse Oximeter] 90 89 Respiratory Rate 20 20 18 Blood Pressure [Ri ght Arm] 137/95 H Pulse Oximetry 93 96 Oxygen Delivery Me thod Room Air Room Air 08/01/23 23:00 08/01/23 23:00 08/01/23 23:00 Temperature 97.5 F L Pulse Rate Pulse Rate [Pulse Oximeter] 60 60 Respiratory Rate 14 14 14 Blood Pressure [Ri ght Arm] 121/83 Pulse Oximetry 94 94 Oxygen Delivery Me thod Room Air Room Air 08/01/23 23:00 08/02/23 03:00 Temperature 97.4 F L Pulse Rate 85 Pulse Rate [Pulse Oximeter] 75 Respiratory Rate 20 Blood Pressure [Ri ght Arm] 136/96 H Pulse Oximetry 96 Oxygen Delivery Me thod Room Air Documenting provider has reviewed patient's vital signs: yes DS: Data Data Completed and Pending Labs on day of discharge: Labs from last 24 hours 08/02/23 05:34 Hemoglobin A1c Pending Triglycerides 231 H Cholesterol 191 LDL Cholesterol, Calc 119 H HDL Cholesterol 26 L Imaging MR Brain: Radiologist's impression: INDICATION: Left facial numbness. TECHNIQUE: Multiplanar multisequence noncontrast MR images of the brain. COMPARISON: CT brain 07/31/2023. FINDINGS: The ventricles and sulci are within normal limits for patient age. No mass effect or midline shift. Minimal FLAIR hyperintensities in the supratentorial white matter, nonspecific. No diffusion restriction to suggest acute infarction. No intracranial hemorrhage or pathologic extra-axial fluid collection. The major arterial flow voids of the skullbase are preserved. The globes are symmetric. Small retention cysts or polyps and moderate mucosal thickening in the right maxillary sinus. Severe opacification of the ethmoid air cells. Elongated lesions within the posterior nasal cavity with extension into the nasopharynx, concerning for polyps. Trace bilateral mastoid fluid. IMPRESSION: 1. No acute infarction, mass effect, or intracranial hemorrhage. 2. Minimal FLAIR hyperintensities in the supratentorial white matter are nonspecific, though most typical for chronic microvascular ischemic changes or sequelae of migraine headaches. 3. Elongated lesions within the posterior nasal cavity extending of the nasopharynx, concerning for polyps. Severe opacification of the ethmoid air cells. CT- Other: Radiologist's impression: CTA head: INDICATION: Transient ischemic attack, left arm numbness, left facial numbness. TECHNIQUE: CTA head with contrast bolus tracking, 3D angiographic rendering using maximum intensity projection (MIP) and images permanently archived. FINDINGS: The left STOCK DEALER has an early bifurcation with possibly some collateral formation. There is otherwise normal opacification of the intracranial vasculature. There is no large vessel occlusion. No aneurysm is identified. IMPRESSION: No large vessel occlusion. CTA Neck: INDICATION: Transient ischemic attack, left arm numbness, left facial numbness. TECHNIQUE: CTA neck with contrast bolus tracking, 3D angiographic rendering using maximum intensity projection (MIP) and images permanently archived. FINDINGS: There is minor carotid atherosclerosis. There is no significant carotid artery stenosis or dissection. There is no significant vertebral artery stenosis or dissection. The soft tissues of the neck are within normal limits. The cervical spine is in normal alignment. Degenerative changes are noted in the cervical spine. IMPRESSION: No significant carotid or vertebral artery stenosis or dissection. Discharge Plan Discharge Disposition: Home, Self-Care Date of Admission: 07/31/23 20:49 Attending Provider on Discharge: Butch Miller Primary Care Provider: Provider,Not a Local Condition: Stable Anticipated Discharge Date/Time: 08/02/23 08:45 Discharge Medications: New aspirin [Children's Aspirin] 81 mg Tablet,Chewable 81 mg PO DAILY Qty: 100 0RF clopidogrel 75 mg Tablet 75 mg PO DAILY Qty: 30 0RF rosuvastatin 20 mg tablet 20 mg PO DAILY Qty: 30 2RF Discharge Orders: Discharge Order (Routine); Ordered 08/02/23 Ordered By: Butch Miller Patient Education: Aspirin (By mouth), Clopidogrel (By mouth) (Plavix), Rosuvastatin (By mouth), Transient Ischemic Attack (DC) Additional Instructions: You are prescribed 3 new medicines: Take aspirin 81 mg daily, rosuvastatin 20 mg daily, clopidogrel 75 mg daily. Plan to stop the clopidogrel after 1 month and continue the other medications indefinitely. You do have some increased risk of bleeding problems while taking aspirin and clopidogrel. Talk to your doctor about your colonoscopy. They may want you to postpone the colonoscopy until you are done with clopidogrel. During her hospital stay we found other conditions that should be addressed by your primary care doctor. You have elevated blood sugar and may have diabetes. We did not start treatment for your high blood sugar. You also have high cholesterol and we are treating that with rosuvastatin. The MRI of your head showed polyps and ethmoid sinusitis. See the ear nose and throat doctor, Dr. Cavazos for this. Activity Level: No Restrictions Discharge Diet: Heart Healthy (2 gm sodium, low fat) Follow Up Appointments: Stan Navarro [Other] - 08/15/23 8:45 am Provider,Not a Local [Primary Care Provider] - Saul Cavazos MD [Staff Physician] - (1-2 weeks) Stan Navarro MD [Staff Physician] - (1-2 weeks) Forms: [employer] Info Instructions
[2023-08-02 07:48] VITALS: PULSE 69
[2023-08-02 07:49] LABS: Hemoglobin A1C* 6.5 % (0-5.6)
[2023-08-02 09:00] VITALS: BP 134/70; PULSE 70; RESP 20; TEMP 36.3; O2SAT 94
[2023-08-02] MEDS: ASPIRIN 81 MG TAB.CHEW PO (09:19)
[2023-08-02] MEDS: CLOPIDOGREL 75 MG TABLET PO (09:20)
[2023-08-02] MEDS: ROSUVASTATIN CALCIUM 10 MG TABLET 20 MG PO (09:20)
--- NOTE | 2023-08-02 09:32 | NUTR.NU ---
RDN with nutrition screen for low fat, low cholesterol, and 2gm sodium diet. Patient admitted with TIA. Per steamer blocker, patient ate 100% of lunch and supper yesterday. Current weight is at 288lbs with a BMI of 39.1 kg/m2. No weight history available to review at this time. Patient declined verbal education for designated caregiver and will pass along the handout provided. Heart healthy diet education provided. Discussed following a Mediterranean-style diet using the plate method that includes ? plate non-starchy vegetables and fruit, ? plate whole grains/starch, ? plate healthy protein (fish, poultry, legumes, nuts/seeds), and healthy fats. Discussed limiting saturated fat and sodium intake. Handouts provided to support discussion. RDN contact information provided and encouraged patient to call with questions. RDN to follow up as needed.
== END 2023-08-02 10:22 | disposition home or self-care (01) ==
LOC: ED 17:34 → MEDSURG 20:50
PROVIDERS: Family Medicine; Admitting Provider Family Medicine; Emergency Provider Student in an Organized Health Care Education/Training Program; Visit Provider Family Medicine
DX: R29.818 Other symptoms and signs involving the nervous system (principal); R73.9 Hyperglycemia, unspecified; J32.2 Chronic ethmoidal sinusitis; J33.9 Nasal polyp, unspecified; E78.00 Pure hypercholesterolemia, unspecified; E78.5 Hyperlipidemia, unspecified; R20.0 Anesthesia of skin; G47.33 Obstructive sleep apnea (adult) (pediatric); E66.9 Obesity, unspecified; I77.810 Thoracic aortic ectasia; K42.9 Umbilical hernia without obstruction or gangrene; M10.9 Gout, unspecified; Z87.19 Personal history of other diseases of the digestive system; Z85.828 Personal history of other malignant neoplasm of skin; Z98.890 Other specified postprocedural states
CPT/HCPCS: 36415; 70450; 70496; 70498; 70551; 80048; 80053; 80061; 83036; 84484; 85025; 87631; 93005; 93306; 99283; 99285; G0378; A9270; J1650; Q9957; Q9967

== ENCOUNTER 2023-11-14 07:54 | Outpatient (CLI) | payer OTHER, SELFPAY | END 2023-11-14 07:55 | disposition home or self-care (01) | LOC: NFLDREF 11-18 06:35 | PROVIDERS: PCP Family Medicine; Visit Provider Family Medicine | DX: E78.5 Hyperlipidemia, unspecified (principal); Z12.5 Encounter for screening for malignant neoplasm of prostate | CPT/HCPCS: 80061; G0103 ==

== ENCOUNTER 2024-01-14 17:46 | Outpatient (CLI) | payer OTHER, SELFPAY ==
--- NOTE | 2024-01-14 18:15 | MR_ITS ---
[address] [address] Phone:?[phone] Fax:?[phone] Referring Physician Information: Reed Carter [address] [facility] [address] Phone:?[phone] Fax:?[phone] Patient:Ellis Tesfaye D.O.B:?1960 Sex:?Male Phone:?[phone] [facility] MRN:?[id number] Exam Date:?01/14/2024 EXAM: MRI of the RIGHT KNEE, without contrast CLINICAL: Right knee twisting related injury. Evaluate lateral compartment. COMPARISONS: X-rays dated 01/07/2024. TECHNICAL: Multiplanar multisequence MRI of the right knee was obtained. SEDATION: None. CONTRAST: None. FINDINGS: Ligaments: ACL: Intact and unremarkable. PCL: Intact and unremarkable. MCL: Intact and unremarkable. LCL: Intact and unremarkable. Posterolateral corner: Popliteus, biceps femoris, iliotibial band, and the popliteofibular ligament appear intact. Posteromedial corner: Semimembranosus, pes anserine tendons and posterior oblique ligament appear intact. Extensor mechanism: Patellar tendon: Intact, without tendinopathy. Quadriceps tendon: Intact, without tendinopathy. Retinacula: Medial and lateral retinacula are intact. Fat pads: Unremarkable infrapatellar Hoffa's, quadriceps and prefemoral fat pads. Patellofemoral joint: Patella: There is high-grade/full-thickness chondral loss involving the medial patellar facet with grade 2-3 chondral loss involving the patellar median ridge. Deep chondral fissuring/small segment of deep chondral delamination involves the patellar median ridge. Trochlea: There is heterogeneity of the trochlear cartilage. Grade 2 chondral loss is seen to involve the central extending into the medial trochlea. Focal deep chondral fissure involving the medial trochlea on sagittal series 6 image 17. Medial compartment: Medial meniscus: There is high-grade complex tearing/disruption of the posterior root as seen on sagittal series 6 images 18-19 and coronal series 8 image 23-24. Horizontal dominant complex tearing also involves the posterior horn extending into the body segment. Approximately 2-3 mm of medial extrusion of the peripheral body segment medial meniscus. Medial cartilage: No significant chondromalacia. Lateral compartment: Lateral meniscus: No evidence of discrete meniscal tear or meniscal displacement. Lateral cartilage: No significant chondromalacia. Knee joint: Effusion: Moderate sized right knee effusion. Intra-articular bodies:?No convincing bodies identified. Popliteal cyst: None. Bones: There is reactive marrow edema seen to involve the lateral aspect of the posterior medial tibial plateau adjacent to the posterior root medial meniscal tear. No evidence of fracture. IMPRESSION: 1. High-grade complex tearing/disruption of the posterior root medial meniscus with associated medial extrusion of the peripheral body segment medial meniscus into the medial gutter. Tearing also involves the posterior horn extending into the body segment medial meniscus. 2. Patellofemoral chondromalacia as above. 3. Moderate sized joint effusion. 4. No evidence of ligamentous injury or fracture. JCZ Electronically signed on 01/15/2024 7:53:00 AM by Gee Enriquez D.O.
== END 2024-01-14 17:47 | disposition home or self-care (01) ==
LOC: MRI 17:46
PROVIDERS: Visit Provider Physician Assistant
DX: M25.561 Pain in right knee (principal); S83.231A Complex tear of medial meniscus, current injury, right knee, initial encounter; M25.461 Effusion, right knee; M22.41 Chondromalacia patellae, right knee; X50.1XXA Overexertion from prolonged static or awkward postures, initial encounter; S89.91XA Unspecified injury of right lower leg, initial encounter
CPT/HCPCS: 73721

== ENCOUNTER 2024-01-21 10:22 | Outpatient (CLI) | payer OTHER, SELFPAY | END 2024-01-21 10:23 | disposition home or self-care (01) | LOC: LKVREF 10:23 | PROVIDERS: PCP Family Medicine; Visit Provider Family Medicine | DX: Z01.818 Encounter for other preprocedural examination (principal) | CPT/HCPCS: 80048 ==

== ENCOUNTER 2024-01-24 06:05 | Day surgery (SDC) | payer OTHER, SELFPAY ==
[2024-01-24] VITALS (12 sets, daily range): BP systolic 99–129; BP diastolic 55–87; PULSE 68–82; RESP 16–18; TEMP 36.2–36.6; O2SAT 90–98; BMI 38.2
[2024-01-24] MEDS: LACTATED RINGERS 1000 ML 1,000 ML 100 ML IV ×2 (06:30→08:15)
[2024-01-24] MEDS: SODIUM CHLORIDE 0.9 % (FLUSH) 10 ML SYRINGE IVF (06:30)
[2024-01-24] MEDS: CEFAZOLIN 2 GM INJ IVP (07:35)
--- NOTE | 2024-01-24 08:15 | P.NB_ITS ---
Nerve Block Nerve Block Time Seen by Provider: 08:40 Date Seen: 01/24/24 Type of block requested by surgeon for post-operative analgesia: geniculars Time out performed: Yes Verification of patient name: Yes Verification of date of : Yes Site marking: site marked Name of person performing procedure: Enoch Winters Continuous monitoring Was continuous monitoring of O2 sat, B/P, cardiac catheterization technologist, recorded every 15 minutes?: Yes Procedure Checklist: sterile prep, needles and gloves Ultrasound guided. Images saved: No Medications given in 5ml increments after negative aspiration: Ropivicaine %: 0.5 mL: 12 Needle gauge: 25 Patient tolerated procedure well: Yes Additional comments: Injected in 4ml increments after negative aspiration Block Charges Block Charge (with Pro Fee): Genicular Nerve Block Use of Ultrasound Machine for Block: No
--- NOTE | 2024-01-24 08:16 | W.ANESCHARGE ---
Anesthesia Charges Start Date/Time Anesthesia Start Date: 01/24/24 Anesthesia Start Time: 07:18 Stop Date/Time Anesthesia Stop Date: 01/24/24 Anesthesia Stop Time: 08:48
--- NOTE | 2024-01-24 08:44 | PM.ORPRC ---
Procedure Note Date of procedure: 01/24/24 Procedure: PREOPERATIVE DIAGNOSIS: Right knee medial meniscus root tear POSTOPERATIVE DIAGNOSIS: Right knee medial meniscus root tear NAME OF OPERATION: Right knee arthroscopic medial meniscus root repair SURGEON: Cosmo Mckeon MD [employer]ORY MACHINE COMPUTER OPERATOR: NANI Esparza ANESTHESIA: General ESTIMATED BLOOD LOSS: 0 mL COMPLICATIONS: None SPECIMENS: None DRAINS: None PREOPERATIVE ANTIBIOTICS: Ancef 3 gram INDICATIONS: The patient is a 63-year-old male with a history of right knee medial pain. MRI scan is consistent with a medial meniscus root tear. Despite appropriate nonoperative management, including activity modification, antiinflammatories, [id number] pain medication, bracing, physical therapy, and injections they continue to have pain and disability. Operative intervention was offered. The risks, benefits and expected outcomes were discussed in detail. These included but were not limited to: Infection, bleeding, injury to blood vessel or nerve, venous thromboembolism. All questions were answered to their satisfaction. PROCEDURE: The patient was placed supine on the operating room table. General endotracheal anesthesia was administered. The right lower extremity was prepped and draped in the usual sterile fashion. The limb was exsanguinated with the Alvino bandage. The pneumatic tourniquet was inflated to 300 mmHg. A standard anterolateral portal was established. The arthroscope was introduced. The working portal was established anteromedially. Diagnostic arthroscopy was performed with findings as follows: The suprapatellar pouch is normal. Articular surface on the patella shows diffuse grade 1/2 change. Articular surface on the trochlea diffuse grade 2/3 change. The medial gutter is normal. The medial compartment shows a small focal area of grade 2/3 change medially, normal articular cartilage on the medial tibial plateau. The medial meniscus has a radial tear from the leading edge, to the capsule just off of the posterior tibial attachment, completely detaching it from the tibia. The notch shows the ACL to be intact. The lateral compartment shows normal articular cartilage on the lateral femoral condyle and lateral tibial plateau. The lateral meniscus has some degenerative fraying of the leading edge of the midbody and posterior horn. The lateral gutter is normal. The leading edge of the midbody and posterior horn of the lateral meniscus was debrided with the shaver through the anteromedial portal. The knee scorpion was used to pass a fiber link x 2 in the posterior horn of the medial meniscus. The tibial drill guide was used over the footprint of the root. A longitudinal incision over the anteromedial face of the tibia was placed. The flip cutter was drilled into the footprint. The flip cutter was flipped and back cut 10 mm. It was removed and exchanged for a fiber stick. The fiber stick was brought out the anteromedial portal and was used to shuttle both of the fiber link luggage tag sutures on the posterior horn out the anteromedial tibia. We then tensioned the sutures and fixed them to the tibia with a SwiveLock anchor. This provided an excellent repair of the posterior tibial attachment of the medial meniscus to its anatomic footprint. The power pick was used to microfracture the notch both medially and laterally. Arthroscopic instruments were removed, the portal sites were Steri-Stripped closed, the incision over the tibia was closed with 3-0 Vicryl and 4-0 Monocryl. A dry dressing was applied, the tourniquet was released. Sponge and needle counts were correct x 2. The patient tolerated the procedure well. There were no apparent complications. They were carefully transferred to the hospital bed and taken to the postanesthesia care unit in satisfactory condition. PLAN: The patient will be discharged to home. They will be strict nonweightbearing on the lower extremity for 6 weeks postoperatively. Range of motion will be allowed from 0-90 degrees x 2 weeks then unrestricted range of motion. They will follow up in 1-2 weeks for a wound check.
--- NOTE | 2024-01-24 08:54 | W.ANESCHARGE ---
Anesthesia Charges Start Date/Time Anesthesia Start Date: 01/24/24 Anesthesia Start Time: 07:18 Stop Date/Time Anesthesia Stop Date: 01/24/24 Anesthesia Stop Time: 08:48
--- NOTE | 2024-01-24 09:17 | SUR.PHASEI ---
Patient meets anesthesia discharge criteria from PACU
[2024-01-24] MEDS: METOCLOPRAMIDE HCL 5 MG/ML INJ 10 MG IVP (10:16)
== END 2024-01-24 11:29 | disposition home or self-care (01) ==
LOC: OR 06:05
PROVIDERS: PCP Family Medicine; Visit Provider Orthopaedic Surgery
PROC: (CPT 29882; principal; 2024-01-24 07:15)
DX: S83.231A Complex tear of medial meniscus, current injury, right knee, initial encounter (principal); G89.18 Other acute postprocedural pain; E11.9 Type 2 diabetes mellitus without complications
CPT/HCPCS: 29882; 1400; 64454; 82962; 97116; 97161; C1713; J0690; J1100; J1170; J2250; J2405; J2704; J2765; J3010; J7120

== ENCOUNTER 2024-03-21 09:39 | Outpatient (CLI) | payer OTHER, SELFPAY ==
[2024-03-21 13:56] LABS: Mononuclear WBC Body Fluid* 22 %; Polynuclear WBC Body Fluid* 78 %; RBC, Body Fluid* 1000 Cells/uL; WBC, Body Fluid* 9898 Cells/uL
[2024-03-21 14:01] LABS: BF Clarity* Slightly Cloudy; BF Color Xanthochromic
== END 2024-03-21 09:40 | disposition home or self-care (01) ==
PROVIDERS: PCP Family Medicine; Visit Provider Physician Assistant
DX: M25.562 Pain in left knee (principal); M25.462 Effusion, left knee; M10.9 Gout, unspecified
CPT/HCPCS: 87070; 87205; 89051; 89060

== ENCOUNTER 2024-03-25 08:30 | Outpatient (RCR) | payer OTHER, SELFPAY | END 2024-05-08 15:31 | disposition home or self-care (01) | PROVIDERS: PCP Family Medicine; Visit Provider Orthopaedic Surgery | DX: Z98.890 Other specified postprocedural states (principal); Z51.89 Encounter for other specified aftercare | CPT/HCPCS: 97110; 97112; 97116; 97140; 97161 ==

== ENCOUNTER 2024-11-13 10:42 | Outpatient (CLI) | payer OTHER, SELFPAY | END 2024-11-13 10:43 | disposition home or self-care (01) | LOC: LKVREF 10:44 | PROVIDERS: PCP Family Medicine; Visit Provider Physician Assistant Medical | DX: M54.2 Cervicalgia (principal); R51.9 Headache, unspecified | CPT/HCPCS: 86140 ==

== ENCOUNTER 2024-11-26 13:28 | Outpatient (CLI) | payer OTHER, SELFPAY | END 2024-11-26 13:29 | disposition home or self-care (01) | LOC: FBOREF 13:29 | PROVIDERS: PCP Family Medicine; Visit Provider Physician Assistant | DX: M10.9 Gout, unspecified (principal); M25.562 Pain in left knee; M25.462 Effusion, left knee | CPT/HCPCS: 89060 ==

== ENCOUNTER 2025-06-30 08:29 | Outpatient (CLI) | payer OTHER, SELFPAY | END 2025-06-30 08:30 | disposition home or self-care (01) | PROVIDERS: PCP Family Medicine; Visit Provider Family Medicine | DX: I10 Essential (primary) hypertension (principal); E11.9 Type 2 diabetes mellitus without complications; E78.2 Mixed hyperlipidemia; Z12.5 Encounter for screening for malignant neoplasm of prostate; M10.9 Gout, unspecified | CPT/HCPCS: 80048; 80061; 84550; G0103 ==